=== PATIENT | male | born 1980 | race African-American/Black ===

== ENCOUNTER 2017-05-26 23:07 | Emergency (ER) | payer MEDICAID, OTHER ==
[~2017-05-26] VITALS: Ht 165.1 cm; Wt 56.8 kg
[~2017-05-26 23:07] MED LIST: NO HOME MEDS; ONDA4TAB12 PO
[2017-05-26 23:16] VITALS: BP 133/72
== END 2017-05-27 02:13 | disposition home or self-care (01) ==
LOC: ER 23:08
DX: Z00.00 Encounter for general adult medical examination without abnormal findings (principal); F15.10 Other stimulant abuse, uncomplicated; Z59.0 Homelessness; Z79.899 Other long term (current) drug therapy
CPT/HCPCS: 99281

== ENCOUNTER 2020-10-02 19:30 | Emergency (ER) | payer MEDICAID ==
[~2020-10-02] VITALS: Ht 165.1 cm; Wt 50.0 kg
[2020-10-02 19:39] VITALS: BP 122/85
== END 2020-10-02 20:31 ==
LOC: ER 19:30
DX: S16.1XXA Strain of muscle, fascia and tendon at neck level, initial encounter (principal); F17.210 Nicotine dependence, cigarettes, uncomplicated; F15.90 Other stimulant use, unspecified, uncomplicated; Z59.0 Homelessness; Y04.0XXA Assault by unarmed brawl or fight, initial encounter; Y93.89 Activity, other specified; Y92.89 Other specified places as the place of occurrence of the external cause; Y99.9 Unspecified external cause status
CPT/HCPCS: 72040; 99283

== ENCOUNTER 2023-05-24 23:40 | Emergency (ER) | payer MEDICAID ==
[~2023-05-24] VITALS: Ht 162.6 cm; Wt 50.0 kg
[2023-05-25] MEDS: acetaminophen 325mg tablet PO ONE (02:09)
[2023-05-25] MEDS: ibuprofen tablet 400 MG TABLET PO ONE (02:10)
[2023-05-25 02:13] VITALS: BP 126/76; PULSE 90; RESP 16; TEMP 98.6; O2SAT 98
== END 2023-05-25 02:14 | disposition home or self-care (01) ==
LOC: ER 23:41
DX: M79.605 Pain in left leg (principal); M79.604 Pain in right leg; F15.90 Other stimulant use, unspecified, uncomplicated; F20.9 Schizophrenia, unspecified; Z59.00 Homelessness unspecified; Z88.0 Allergy status to penicillin; Z98.890 Other specified postprocedural states
CPT/HCPCS: 99283

== ENCOUNTER 2023-11-20 10:22 | Emergency (ER) | payer MEDICAID, OTHER ==
[~2023-11-20] VITALS: Ht 165.1 cm; Wt 50.0 kg
[~2023-11-20 10:22] MED LIST changes: +ONDA-243 PO; -ONDA4TAB12 PO
[2023-11-20 10:25] VITALS: TEMP 97.8
[2023-11-20 10:49] LABS: BASOPHILS # (AUTO) 0.1 X10'3 (0-0.2); BASOPHILS % (AUTO) 0.4 % (0-1); EOSINOPHILS # (AUTO) 0.1 X10'3 (0-0.9); EOSINOPHILS % (AUTO) 0.8 % (0-6); HEMATOCRIT 35.2 % (42.0-52.0); HEMOGLOBIN 11.6 g/dl (14.0-17.9); LYMPHOCYTES # (AUTO) 2.8 X10'3 (1.1-4.8); LYMPHOCYTES % (AUTO) 23.2 % (21-51); MEAN CORPUSCULAR HEMOGLOBIN 29.3 PG (27.0-31.0); MEAN CORPUSCULAR HGB CONC 32.9 g/dL (33.0-36.5); MEAN CORPUSCULAR VOLUME 89.1 FL (78-98); MEAN PLATELET VOLUME 6.4 FL (7.4-10.4); MONOCYTES # (AUTO) 1.1 X10'3 (0-0.9); MONOCYTES % (AUTO) 8.9 % (2-12); NEUTROPHILS # (AUTO) 8.1 X10'3 (1.8-7.7); NEUTROPHILS % (AUTO) 66.7 % (42-75); PLATELET COUNT 562 X10'3 (140-440); RED BLOOD COUNT 3.95 X10'6 (4.70-6.10); RED CELL DISTRIBUTION WIDTH 13.5 % (11.5-14.5); WHITE BLOOD COUNT 12.2 X10'3 (4.5-11.0)
[2023-11-20 11:04] LABS: TOTAL CELLS COUNTED 100
[2023-11-20 11:05] LABS: PLATELET ESTIMATE INCREASED
[2023-11-20 11:06] LABS: ALANINE AMINOTRANSFERASE 49 U/L (12-78); ALBUMIN 2.3 G/DL (3.4-5.0); ALBUMIN/GLOBULIN RATIO 0.6 (1.1-1.5); ALKALINE PHOSPHATASE 117 IU/L (46-116); ANION GAP 6 (8-16); ASPARTATE AMINO TRANSFERASE 35 U/L (10-37); BILIRUBIN,TOTAL 0.1 MG/DL (0.1-1.0); BLOOD UREA NITROGEN 5 MG/DL (7-18); CALCIUM 8.7 MG/DL (8.5-10.1); CHLORIDE 106 MMOL/L (99-107); CREATININE 0.71 MG/DL (0.60-1.10); GLUCOSE 112 MG/DL (70-104); POTASSIUM 3.3 MMOL/L (3.5-5.1); SODIUM 142 MMOL/L (135-145); TOTAL PROTEIN 6.4 G/DL (6.4-8.2); eCRCL 96 ML/MIN; eGFR > 90 ML/MIN
[2023-11-20 11:14] LABS: ETHANOL < 10 MG/DL (<10); MAGNESIUM 2.1 MG/DL (1.5-2.4); PRO BRAIN NATRIURETIC PEPTIDE 430 PG/ML (0-125)
[2023-11-20] MEDS: normal saline 1000ml 1,000 ML IV ONE (11:56)
[2023-11-20] MEDS: potassium Cl 20 mEq SR tablet PO ONE (11:58)
[2023-11-20 12:58] LABS: BILIRUBIN,URINE NEGATIVE (Neg); CLARITY,URINE CLEAR (Clear); COLOR,URINE YELLOW (Yellow); GLUCOSE, URINE NEGATIVE (Neg); KETONES,URINE NEGATIVE (Neg); LEUKOCYTE ESTERASE ,URINE SMALL (Neg); NITRITES, URINE NEGATIVE (Neg); OCCULT BLOOD,URINE TRACE-INTACT (Neg); PH,URINE 6.5 (4.8-8.0); PROTEIN,URINE NEGATIVE (Neg); UROBILINOGEN,URINE 0.2 E.U/dL (0.2-1.0)
[2023-11-20 13:02] LABS: UA COLLECTION TYPE VOIDED
[2023-11-20 13:07] LABS: BACTERIA,URINE FEW /HPF (Neg); SQUAMOUS EPITHELIAL CELL,UR NONE SEEN /LPF (FEW)
[2023-11-20 13:10] LABS: URINE AMPHETAMINE SCREEN NEGATIVE (Neg); URINE BARBITUATE SCREEN NEGATIVE (Neg); URINE BENZODIAZEPINES SCREEN NEGATIVE (Neg); URINE CANNABINOID SCREEN NEGATIVE (Neg); URINE COCAINE SCREEN NEGATIVE (Neg); URINE METHADONE SCREEN NEGATIVE (Neg); URINE OPIATE SCREEN NEGATIVE (Neg); URINE PHENCYCLIDINE SCREEN NEGATIVE (Neg)
[2023-11-20] MEDS ORDERED: cefuroxime axetil 250mg tablet PO ONE (13:20)
[2023-11-20] MEDS: FOSFOMYCIN TROMETHAMINE 3 GM PACKET PO ONE (13:40)
[2023-11-20 13:44] VITALS: BP 120/83; PULSE 82; RESP 16; O2SAT 95
== END 2023-11-20 14:15 | disposition home or self-care (01) ==
LOC: ER 10:22
DX: N39.0 Urinary tract infection, site not specified (principal); F20.9 Schizophrenia, unspecified; F15.90 Other stimulant use, unspecified, uncomplicated; I49.9 Cardiac arrhythmia, unspecified; Z59.00 Homelessness unspecified; Z88.0 Allergy status to penicillin
CPT/HCPCS: 36415; 71045; 80053; 80305; 80320; 81001; 83735; 83880; 84484; 85007; 85025; 87088; 93005; 96360; 99285; J7030

== ENCOUNTER 2025-03-05 16:27 | Emergency (ER) | payer MEDICAID ==
[~2025-03-05] VITALS: Ht 165.1 cm; Wt 55.8 kg
[~2025-03-05 16:27] MED LIST changes: -ONDA-243 PO
[2025-03-05 16:30] VITALS: BP 151/88; PULSE 82; RESP 16; O2SAT 100
--- NOTE | 2025-03-05 16:56 | RADIOLOGY REPORT ---
CLINICAL INDICATION: HAND PAIN TECHNIQUE: 3 radiographic views of the right hand were obtained. COMPARISON: None FINDINGS/IMPRESSION: There is no evidence of acute fracture or dislocation. The visualized joint space is well maintained. The alignment is anatomical. There is no radiopaque foreign body. Soft tissue edema over the dorsal metacarpophalangeal joint with small skin irregularity.
--- NOTE | 2025-03-05 17:04 | Physician Documentation ---
History of Present Illness ~ Chief Complaint: Hand pain Stated Complaint: HAND SWOLLEN Time Seen by MD: 16:37 OK to notify your PCP?: Yes Primary Medical Doctor: None Source: patient Mode of Arrival: POV Exam Limitations: no limitations HPI Reports having right hand pain for the past month. He denies any known injury but he does have some swelling over the knuckle of his right middle finger. He has not taken any medication for pain prior to arrival. He is able to make a fist. Tetanus within 5 years: No Medication Reconciliation Allergies: Coded Allergies: Penicillins (Unverified Allergy, Unknown, 05/24/23) Miscellaneous Medications Home Med List (No Home Medications), (Reported) Past Medical History Past Medical History: No Pertinent History, Schizophrenia Past Surgical History: no surgical history Alcohol Use: None Drug Use: methamphetamine Lives with: Mother, Other Lives In: Homeless Occupation: disabled Review of Systems All Other Systems at this time: Reviewed and Negative Physical Exam Vital Signs: RN Vital Signs have been reviewed: Yes, Temperature: 98.4, Source: Oral, Heart Rate: 82, Respiratory Rate: 16, BP: 151/88, Pulse Oximetry: 100, Weight: 55.800 Oxygen Flow Rate: 0 Pulse Oximetry Reflects: adequate oxygenation Physical Exam General: Alert, no distress. HEENT: No injection, moist mucous membranes. Neck: Full range of motion. Respiratory: No respiratory distress, equal chest rise and fall. Chest: No accessory muscle use. Cardiovascular: Regular rate and rhythm. Gastrointestinal: Nondistended. Extremities: Range motion of right middle finger, edema over the knuckle with a scab in place, no signs of infection. Tenderness to palpation over knuckle. Able to make a fist. Good CSM, good sensation, good pulses in right hand. Neurologic: Oriented x4. Psychiatric: Normal mood and affect. Skin: Normal color, warm and dry. Progress Results/Orders Reviewed/noted all lab results: Yes Results/Orders Orders - BELIA LAGUNA Hand, Complete (3vw Min) (03/05/25 16:33) Completed Orders - BELIA LAGUNA Hand, Complete (3vw Min) (03/05/25 16:33) Acetaminophen 325mg Tablet (Tylenol Tabl (03/05/25 17:00) Medications Received in ER Medications (Trade) Dose Ordered Sig/Dian Route PRN Reason Start Time Stop Time Status Last Admin Dose Admin (Tylenol tablet) 650 mg ONCE ONCE PO 03/05/25 17:00 03/05/25 17:01 DC 03/05/25 17:17 650 MG Vital Signs 03/05/25 03/05/25 16:30 17:20 Temp 98.4 98.4 Pulse 82 Resp 16 B/P (MAP) 151/88 Pulse Ox 100 O2 Flow Rate 0 EKG/XRAY/CT/US/VASC/MRI Bone/Soft Tissue X-Ray (Ext.) : Additional Comment Right hand x-ray as interpreted by me; no joint effusion, no acute fracture, no soft tissue swelling, no dislocation, or foreign body. Medical Decision Making Additional information obtaine: old records Findings Has been having pain and swelling over the right finger knuckle over the past month. He does endorse having pain with palpation over the site. X-ray is negative for acute fracture or dislocation. Administered Tylenol for pain. General Diff Dx:Considerations: Include: Contusion, Hematoma, Neurovascular injury, Open fracture, Sprain Shoulder Diff Dx:Consideration: Include: Other Elbow Diff Dx:Considerations: Include: Other Wrist Diff Dx:Considerations: Include: Other Hand Diff Dx:Considerations: Include: Other Finger Diff Dx:Considerations: Include: Other Departure Disposition: 01 HOME / SELF CARE / HOMELESS Impression: Primary Impression: Hand pain Condition: Stable Discharge Instructions: Hand Pain Additional Instructions: you can use Tylenol and/or ibuprofen for pain relief. We administered Tylenol here in the department. There is no fracture or dislocation of your right middle finger. Return back here for any new or worsening symptoms. Follow up w ith your regular doctor in the next week if you continue to have symptoms. Referrals: NO PRIMARY CARE PROVIDER (PCP) Education Educated: Patient Educated regarding: diagnosis, treatment, prognosis, need for follow up Additional Comment Medical Screen Exam This patient recieved a medical screening examination. After reviewing the individual's medical complaints with presenting symptoms and performing an appropriate physical examination, it was determined that no immediate life- threatening emergency medical condition is present. This individual is also not a women having contractions. Signature Scribe Signature: . Attestation: Scribed for Belia Laguna [employer] by Belia Laguna - ROSA . 03/05/25 21:15 Parts of this note were created using [employer] voice recognition software program. While efforts were made to correct any mistakes made by this voice recognition software program, nonsensical phrases may remain in this note. In addition, there may be errors and syntax, grammar, content and spelling. BELIA LAGUNA [facility] Mar 05, 2025 17:04
[2025-03-05 17:20] VITALS: TEMP 98.4
== END 2025-03-05 17:36 | disposition home or self-care (01) ==
LOC: ER 16:28
DX: M79.641 Pain in right hand (principal); F15.90 Other stimulant use, unspecified, uncomplicated; Z88.0 Allergy status to penicillin; Z59.00 Homelessness unspecified
CPT/HCPCS: 73130; 99283